=== PATIENT | male | born 1995 | race Caucasian/White ===

== ENCOUNTER 2016-08-07 18:14 | Emergency (ER) | payer OTHER ==
[~2016-08-07] VITALS: Wt 70.3 kg
[~2016-08-07 18:14] MED LIST: KEFLEX500 MG PO; MOTRIN600 MG PO; TRAMADOL HCL50 MG PO; TYLENOL W/CODEI1 TA2 PO
[2016-08-07] MEDS ORDERED: Motrin,Rufen800 MG PO (19:11)
[2016-08-07] MEDS ORDERED: HYDROCODONE BIT1 T11 PO (19:11)
== END 2016-08-07 19:16 | disposition home or self-care (01) ==
LOC: ED 18:14
DX: S93.401A Sprain of unspecified ligament of right ankle, initial encounter (principal); F17.200 Nicotine dependence, unspecified, uncomplicated; V19.9XXA Pedal cyclist (driver) (passenger) injured in unspecified traffic accident, initial encounter; Y93.55 Activity, bike riding; Y92.89 Other specified places as the place of occurrence of the external cause; Y99.8 Other external cause status

== ENCOUNTER 2018-02-21 | Emergency (ER) | payer SELFPAY ==
[~2018-02-21] MED LIST changes: +HYDROCODONE BIT1 T11 PO; +Motrin,Rufen800 MG PO
[2018-02-22] MEDS ORDERED: AUGMENTIN 875875 MG PO (01:33)
== END 2018-02-22 01:08 | disposition home or self-care (01) ==
DX: S62.635A Displaced fracture of distal phalanx of left ring finger, initial encounter for closed fracture (principal); S61.315A Laceration without foreign body of left ring finger with damage to nail, initial encounter; V89.1XXA Person injured in unspecified nonmotor-vehicle accident, nontraffic, initial encounter; Y93.I9 Activity, other involving external motion; Y92.89 Other specified places as the place of occurrence of the external cause; Y99.8 Other external cause status

== ENCOUNTER 2023-03-30 21:32 | Emergency (ER) | payer OTHER ==
[~2023-03-30] VITALS: Ht 180.3 cm; Wt 77.1 kg
[~2023-03-30 21:32] MED LIST changes: +AUGMENTIN 875875 MG PO
== END 2023-03-30 23:40 | disposition home or self-care (01) ==
LOC: ED 21:32
DX: B34.9 Viral infection, unspecified (principal); Z20.822 Contact with and (suspected) exposure to COVID-19